=== PATIENT | male | born 1985 | race Caucasian/White ===

== ENCOUNTER 2023-10-19 14:36 | Emergency (ER) | payer OTHER, SELFPAY ==
--- NOTE | ~2023-10-19 | US_ITS ---
EXAMINATION: US VENOUS ULTRASOUND WITH DOPPLER LOWER EXTREMITY, RIGHT CLINICAL INFORMATION: Right lower extremity/knee swelling/pain COMPARISON: None available. TECHNIQUE: Ultrasound of the deep veins is performed from the hip to the calf with compression sonography and color and pulse Doppler assessment. Spectral analysis with color-flow imaging is performed. FINDINGS: There is normal venous compression and respiratory variation and augmented flow. The visualized common femoral vein, superficial femoral vein, profunda femoral vein, popliteal vein, and the mid calf posterior tibial and peroneal veins show no evidence of deep venous thrombosis. The contralateral common femoral vein demonstrates normal respiratory variation. US/US venous duplex LE RT IMPRESSION: No DVT demonstrated in the right lower extremity.
[2023-10-19 15:24] VITALS: BP 137/96; PULSE 72; RESP 18; TEMP 37; O2SAT 98; BMI 32.6
--- NOTE | 2023-10-19 15:26 | ED.LOWEXIN ---
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 R knee swelling anteriorly no other symptoms no rash was told he has bursitis but did not follow up with orthopedics did not use woo wrap now comes in with no change but questions complaint: other (knee swelling) Onset (ago): week(s) (1) Severity: mild Relieving factors: nothing Exacerbating factors: nothing Context: other (denies knowing) Associated symptoms: swelling Other symptoms: none Treatments prior to arrival: NSAIDS Related Data Allergies Allergy/AdvReac Type Severity Reaction Status Date / Time aspirin [ASPIRIN] Allergy Intermediate SWELLING Unverified 07/25/20 18:26 Penicillins [PENICILLINS] Allergy Intermediate SWELLING Unverified 07/25/20 18:26 Review of Systems Review of Systems: Constitutional : No Fever, No Chills Cardiovascular : No Chest Pain, No SOB Respiratory : No Cough, No Dyspnea Gastrointestinal : No Nausea, No Vomiting, No Diarrhea, No abdominal Pain Genitourinary : No Dysuria, No Hematuria Musculoskeletal : positive joint pain, No Myalgias, No Joint Swelling Skin : No Skin lacerations, No rash Neuro : No Weakness, No Numbness, No Loss of Consciousness, No Dizziness, No Headache Psych : No Anxiety/Panic, No Depression All other systems reviewed and are negative [facility] Past Medical History Attestation statement: The following information was validated with the patient. Source: old records reviewed Medical History No pertinent past medical history Social History Social History Advance Directives: No Advance Directives Information Provided: No Physical Exam Vital Signs: Vital Signs: Last Vital Signs Temp 97.9 F 10/19/23 20:12 Pulse 72 10/19/23 20:12 Resp 16 10/19/23 20:12 BP 132/88 10/19/23 20:12 Pulse Ox 96 10/19/23 20:12 O2 Del Method Room Air 10/19/23 20:12 BMI result Body Mass Index 32.6 Appearance: Alert. Oriented X3. No acute distress. Eyes: Pupils equal, round and reactive to light. ENT: Pharynx normal. Neck: Normal inspection. Neck supple. CVS: Normal heart rate and rhythm. Pulses normal. Respiratory: No respiratory distress. Abdomen: Soft and nontender. Skin: Skin warm and dry. Normal skin color. Extremities: No lower extremity edema. R knee soft boggy medium prepatallar bursitis no knee effusion Neuro: Oriented X 3. No motor deficit. No sensory deficit. Course Course Course Narrative: RME: 38yo M w/no sig PMHx c/oR knee pain and swelling x1 week. was seen at Dx w/Bursitis, had XRs however w/continued pain/swelling +R knee swelling/+1 pitting edema Venous duplex US ordered Full HPI, ROS and PE to be performed by primary ED provider. Medical Decision Making Medical Decision Making [facility] Narrative: 38 yo male healthy here with atraumatic prepatellar bursitis - no redness, warmth, fevers to suggest infection will place in woo wrap already has ortho follow up can take NSAIDs PRN Differential Diagnosis Differential Diagnoses: The differential diagnosis associated with the presentation includes bursitis Independent Interpretation I performed an independent interpretation of an: Ultrasound (normal ) Radiology Impression Discussion of test interpretation with radiology: I have reviewed the radiologist's reading. Discharge Plan Discharge Clinical Impression: Bursitis, prepatellar, right Patient Disposition: Home, Self-Care Instructions: Knee Bursitis (ED) Additional Instructions: wear woo wrap until you see orthopedics can take motrin. try not to kneel on the area. return for fevers, redness, or any other concerns Use Woo Wrap hasta que mery que el ortopedista puede vashti Motrin. Trate de no arrodillarse en el ?liane. Regrese si tiene fiebre, enrojecimiento o cualquier otra inquietud. Print Language: Vietnamese
[2023-10-19 20:12] VITALS: BP 132/88; PULSE 72; RESP 16; TEMP 36.6; O2SAT 96
== END 2023-10-19 20:41 | disposition home or self-care (01) ==
PROVIDERS: Emergency Provider Emergency Medicine
DX: M71.161 Other infective bursitis, right knee (principal); M25.461 Effusion, right knee; M25.462 Effusion, left knee; R60.0 Localized edema
CPT/HCPCS: 93971; 99282; 99284

== ENCOUNTER 2025-03-10 00:40 | Emergency (ER) | payer MEDICAID, SELFPAY ==
--- NOTE | 2025-03-10 | ECG_ITS ---
Test Reason : CP Blood Pressure : */* mmHG Vent. Rate : 75 BPM Atrial Rate : 75 BPM P-R Int : 138 ms QRS Dur : 100 ms QT Int : 374 ms P-R-T Axes : 38 18 9 degrees QTcB Int : 417 ms Normal sinus rhythm Incomplete right bundle branch block Nonspecific T wave abnormality Abnormal ECG When compared with ECG of 19-Nov-2018 22:08, Incomplete right bundle branch block is now Present Nonspecific T wave abnormality, worse in Inferior leads Referred By: Generic ED Physician Electronically Signed By: Edwardo Duran
--- NOTE | ~2025-03-10 | XR_ITS ---
CLINICAL HISTORY: cp 1 view chest x-ray Comparison: None Findings: No consolidation or effusion. Heart size is normal. No acute fracture. IMPRESSION: 1. No acute findings. This document has been electronically signed by: Ge Desir MD, PHD on 03/10/2025 01:28:31
[2025-03-10 00:45] VITALS: BP 121/67; PULSE 68; RESP 18; TEMP 36.4; O2SAT 98; BMI 27.4
[2025-03-10 00:57] LABS: MANUAL DIFF FLAG NO
[2025-03-10 00:59] LABS: Basophils Percent Auto 0.4 % (0-2); Eosinophils Absolute Auto 0.3 X10*3/uL (0.0-0.4); Eosinophils Percent Auto 3.4 % (0-4); Hematocrit 44.4 % (42.0-52.0); Hemoglobin 14.8 g/dl (14.0-18.0); Imm Gran Abs Auto 0.03 X10*3/uL (0.00-0.03); Imm Gran Pct Auto 0.3 % (0.0-0.4); Lymphocytes Absolute Auto 2.1 X10*3/uL (1.2-4.9); Lymphocytes Percent Auto 21.9 % (20-40); Mean Corpuscular HGB Conc 33.3 g/dl (31.0-36.0); Mean Corpuscular Hemoglobin 28.1 pg (27.0-33.0); Mean Corpuscular Volume 84.3 fL (80.0-98.0); Monocytes Percent Auto 9.9 % (2-11); Neutrophils Absolute Auto 6.2 x10*3/uL (2.0-8.3); Neutrophils Percent Auto 64.1 % (45-73); Platelet Count 270 X10*3/uL (160-400); Red Blood Count 5.27 X10*6/uL (4.60-5.80); Red Cell Distribution Width 14.2 % (11.0-16.0); White Blood Count 9.6 X10*3/uL (4.8-10.8)
[2025-03-10 01:11] LABS: Anion Gap 12 (12-20); Blood Urea Nitrogen 17 mg/dL (9-16); Calcium 9.3 mg/dL (8.4-10.2); Carbon Dioxide 27 mmol/L (22-29); Chloride 105 mmol/L (96-108); Creatinine Clr Calc Pharmacy 127.1; Estimated Glomerular Filt Rate > 60; Glucose Random 90 mg/dL (60-115); Potassium 3.6 mmol/L (3.3-5.1); Sodium 140 mmol/L (135-145)
[2025-03-10 01:19] LABS: Troponin-I High Sensitivity 3.7 ng/L (<3.5-35.0)
--- NOTE | 2025-03-10 01:30 | ED_ITS ---
HPI - Chest Pain General Chief Complaint: Chest Pain Stated Complaint: CP Time Seen by Provider: 03/10/25 01:29 Source: patient Mode of arrival: ambulatory Limitations: no limitations History of Present Illness ED Provider: HPI narrative: Patient with no known cardiac history does have history of anxiety and increased stress been having mid chest pain off and on for last 2 week with anxiety patient was seen at [facility] for same 2 weeks ago workup was negative patient has been homeless for last 2 days with increased stress today around noon time patient noticed mid chest pain similar to that was in the past with anxiety no chest pain at this time patient has been sleeping since he arrived cardiac enzymes negative, EKG with no acute ischemic changes Related Data Previous Rx's ?Medication ?Instructions ?Recorded lorazepam 1 mg tablet (Ativan) 1 mg PO BEDTIME PRN anxiety/sleep 03/10/25 #10 tabs Allergies Allergy/AdvReac Type Severity Reaction Status Date / Time aspirin [ASPIRIN] Allergy Intermediate SWELLING Verified 03/10/25 00:47 Penicillins [PENICILLINS] Allergy Intermediate SWELLING Verified 03/10/25 00:47 Review of Systems 2 Review of Systems: Yes all other systems are reviewed and are negative COUNTS INCLUDE 234 BEDS AT THE [facility] Past Medical History Medical History No pertinent past medical history Social History Social History Smoked in Last 30 Days: No Use of substances other than those prescribed or required for medical reasons: No Advance Directives: No Advance Directives Information Provided: Yes Do you have a plan to hurt others: No Plan Physical Exam 2 Vital Signs: Vital Signs: Last Vital Signs Temp 97.7 F 03/10/25 05:59 Pulse 80 03/10/25 05:59 Resp 18 03/10/25 05:59 BP 114/68 03/10/25 05:59 Pulse Ox 97 03/10/25 05:59 O2 Del Method Room Air 03/10/25 05:59 BMI result Body Mass Index 27.4 Appearance: Alert. Oriented X3. No acute distress. Eyes: PERRLA, No Nystagmus ENT: Pharynx normal. Oral Mucosa moist Neck: Normal inspection. Neck supple. CVS: Normal heart rate and rhythm. Pulses normal. Respiratory: No respiratory distress. Equal air entry bilateral, no wheezing/rales/rhonchi Abdomen: Soft and nontender. Bowel sounds are present, no mass palpable, no CVA tenderness Skin: Skin warm and dry. Normal skin color. Normal skin turgor. Extremities: No lower extremity edema. No calf tenderness Neuro: Oriented X 3. No motor deficit. No sensory deficit.No cerebellar signs , cranial nerves II-XII intact Medical Decision Making Medical Decision Making [facility] Narrative: Patient has atypical chest pain with increased anxiety thinks anxiety brings the chest pain patient has been homeless EKG without ischemic changes cardiac enzymes are negative patient advised to follow with PCP Differential Diagnosis Differential Diagnoses: The differential diagnosis associated with the presentation includes Anxiety/ACS/atypical chest pain Lab Data [facility] Lab Attestation statement: I reviewed the patient's lab results. 03/10/25 00:53 03/10/25 00:53 Labs: Lab Results 03/10/25 Range/Units 00:53 WBC 9.6 (4.8-10.8) X10*3/uL RBC 5.27 (4.60-5.80) X10*6/uL Hgb 14.8 (14.0-18.0) g/dl Hct 44.4 (42.0-52.0) % MCV 84.3 (80.0-98.0) fL MCH 28.1 (27.0-33.0) pg MCHC 33.3 (31.0-36.0) g/dl RDW 14.2 (11.0-16.0) % Plt Count 270 (160-400) X10*3/uL MPV 9.0 L (9.4-12.4) fL Immature Gran % (Auto) 0.3 (0.0-0.4) % Neut % (Auto) 64.1 (45-73) % Lymph % (Auto) 21.9 (20-40) % [place] % (Auto) 9.9 (2-11) % Eos % (Auto) 3.4 (0-4) % Baso % (Auto) 0.4 (0-2) % Lymph # (Auto) 2.1 (1.2-4.9) X10*3/uL [place] # (Auto) 1.0 (0.1-1.2) X10*3/uL Eos # (Auto) 0.3 (0.0-0.4) X10*3/uL Baso # (Auto) 0.0 (0.0-0.2) X10*3/uL Abs Immat Gran (auto) 0.03 (0.00-0.03) X10*3/uL Absolute Neuts (auto) 6.2 (2.0-8.3) x10*3/uL Absolute Nucleated RBC 0.000 (0.0-0.012) X10*3/uL Nucleated RBC % (auto) 0.0 (0.0-0.2) /100WBC Sodium 140 (135-145) mmol/L Potassium 3.6 (3.3-5.1) mmol/L Chloride 105 (96-108) mmol/L Carbon Dioxide 27 (22-29) mmol/L Anion Gap 12 (12-20) BUN 17 H (9-16) mg/dL Creatinine 0.77 (0.5-1.4) mg/dL Estim Creat Clear Calc 127.1 Estimated GFR > 60 Random Glucose 90 (60-115) mg/dL Calcium 9.3 (8.4-10.2) mg/dL Troponin I High Sens 3.7 (<3.5-35.0) ng/L Independent Interpretation I performed an independent interpretation of an: EKG and Plain X-Ray Interpretation: Normal sinus rhythm with heart rate 75 beats per minute normal interval incomplete right bundle-branch block no acute STT wave changes no acute ischemia Discharge Plan Discharge Clinical Impression: Atypical chest pain, Anxiety Patient Disposition: Home, Self-Care Instructions: Chest Pain (ED), Anxiety (ED) Additional Instructions: Your chest pain is likely from anxiety Take medication as prescribed for sleep and anxiety Follow with your PCP as needed Prescriptions: New lorazepam [Ativan] 1 mg tablet 1 mg PO BEDTIME MDD anxiety/sleep PRN (Reason: anxiety/sleep) Qty: 10 0RF Print Language: Lao
[2025-03-10 05:59] VITALS: BP 114/68; PULSE 80; RESP 18; TEMP 36.5; O2SAT 97
[2025-03-10 07:04] VITALS: BP 114/68; PULSE 80; RESP 18; TEMP 36.5; O2SAT 97
== END 2025-03-10 07:05 | disposition home or self-care (01) ==
PROVIDERS: Emergency Provider Internal Medicine
DX: R07.89 Other chest pain (principal); F41.9 Anxiety disorder, unspecified
CPT/HCPCS: 36415; 71045; 80048; 84484; 85025; 93005; 99284

== ENCOUNTER → 2025-03-10 00:42 | Outpatient (BNV) | payer SELFPAY | PROVIDERS: Emergency Provider Internal Medicine; Visit Provider Internal Medicine Cardiovascular Disease | DX: I45.10 Unspecified right bundle-branch block (principal) | CPT/HCPCS: 93010 ==

== ENCOUNTER → 2025-03-10 01:13 | Outpatient (BNV) | payer SELFPAY | PROVIDERS: Emergency Provider Internal Medicine; Visit Provider General Practice | DX: R07.9 Chest pain, unspecified (principal) | CPT/HCPCS: 71045 ==

== ENCOUNTER 2025-09-03 10:15 | Emergency (ER) | payer OTHER, SELFPAY ==
--- OUTSIDE RECORDS SUMMARY | 2025-06-08 09:30 | XMS_ITS ---
Author Organization [facility] Address [address] [place] [id number] Care Team Providers Care Senior Technical Writer Name Role Phone NO, PCP Primary Care Provider [phone] [facility], Nursing Unavailable [phone] REASON FOR VISIT Office: Intake Encounters Encounter Location Date Provider Diagnosis [address] [id number] 06/08/2025 Nursing [facility] Plan Of Treatment No Information Progress Notes * Dc SORIADOB: 1985 (40 yo M)Acc No.[id number]:06/08/2025 Progress Notes Patient: Suzan LEMON Dc ARREDONDO Provider: Corey GARCIA :1985 A ge:39 Y S ex:Male Date:06/08/2025 Address:[address] [place], [place] [id number] Pcp:PCP NO Subjective: * Chief Complaints: * 1 . Office: Intake. * Medical History: Objective: * Vitals: Assessment: Plan: * Treatment: * Images: Billing Information: * Visit Code: * Procedure Codes: * Electronic signature of Susana carreon [facility] on 09/03/2025 at 01:08 PM EDT Sign off status: Pending * Provider: Corey britton [facility] Date: 0 06/08/2025 Generated for Taylor cantrell/Wale/Doni on: 1 01:08 PM EDT
--- NOTE | ~2025-09-03 | XR_ITS ---
EXAMINATION: XR CHEST CLINICAL INFORMATION: chest pain, cough COMPARISON: X-ray 03/10/2025 TECHNIQUE: 2 views of the chest were obtained. FINDINGS: Heart size normal. Right basilar streaky/hazy opacities. Low lung volumes. No effusion. No pneumothorax. No acute osseous findings. XR/XR chest 2V IMPRESSION: Right basilar atelectasis/infiltrate. Electronically signed by: Александр Wilson MD 09/03/2025 12:09 PM EDT
--- NOTE | 2025-09-03 10:16 | ECG_ITS ---
Test Reason : cp Blood Pressure : */* mmHG Vent. Rate : 82 BPM Atrial Rate : 82 BPM P-R Int : 138 ms QRS Dur : 90 ms QT Int : 370 ms P-R-T Axes : 35 -12 8 degrees QTcB Int : 432 ms Sinus rhythm with Premature atrial complexes Nonspecific T wave abnormality Abnormal ECG When compared with ECG of 10-Mar-2025 00:42, Premature atrial complexes are now Present Referred By: Generic ED Physician Electronically Signed By: AKTHERINE RAMIRES
[2025-09-03 10:25] VITALS: BP 140/90; PULSE 84; RESP 16; TEMP 36.8; O2SAT 98; BMI 36.3
[2025-09-03 11:47] LABS: MANUAL DIFF FLAG NO
[2025-09-03 11:50] LABS: Hematocrit 50.1 % (42.0-52.0); Hemoglobin 16.1 g/dl (14.0-18.0); Imm Gran Abs Auto 0.03 X10*3/uL (0.00-0.03); Imm Gran Pct Auto 0.4 % (0.0-0.4); Lymphocytes Absolute Auto 1.9 X10*3/uL (1.2-4.9); Mean Corpuscular HGB Conc 32.1 g/dl (31.0-36.0); Mean Corpuscular Hemoglobin 27.6 pg (27.0-33.0); Mean Corpuscular Volume 85.9 fL (80.0-98.0); NRBC Abs Auto 0.000 X10*3/uL (0.0-0.012); NRBC Pct Auto 0.0 /100WBC (0.0-0.2); Platelet Count 284 X10*3/uL (160-400); Red Blood Count 5.83 X10*6/uL (4.60-5.80); White Blood Count 7.5 X10*3/uL (4.8-10.8)
[2025-09-03 12:00] VITALS: BP 143/82; PULSE 78; RESP 16; O2SAT 99
[2025-09-03 12:04] LABS: Alanine Aminotransferase 23 U/L (0-40); Albumin Level 3.9 g/dL (3.5-5.0); Alkaline Phosphatase 60 U/L (39-117); Anion Gap 10 (12-20); Aspartate Amino Transferase 13 U/L (5-37); Blood Urea Nitrogen 13 mg/dL (9-16); COVID-19 Test Negative (Negative); Calcium 8.5 mg/dL (8.4-10.2); Carbon Dioxide 24 mmol/L (22-29); Chloride 109 mmol/L (96-108); Creatinine Clr Calc Pharmacy 173.5; Estimated Glomerular Filt Rate > 60; IDNOW Serial# 58CA691E; Magnesium 2.2 mg/dL (1.6-2.6); Potassium 4.1 mmol/L (3.3-5.1); Sodium 139 mmol/L (135-145); Total Protein 6.8 g/dL (6.5-8.0)
[2025-09-03 12:06] LABS: IDNOW Serial# 55D5AD1C; Influenza B2 Negative (Negative)
--- NOTE | 2025-09-03 12:07 | ED.CHESTPAIN ---
HPI - Chest Pain General Chief Complaint: Chest Pain Stated Complaint: CP Time Seen by Provider: 09/03/25 10:34 Source: patient, family ( at bedside corroborating history), RN notes reviewed and old records reviewed Mode of arrival: ambulatory Limitations: no limitations History of Present Illness ED Provider: ZOHAIB Lechuga HPI narrative: 40-year-old Croatian-speaking male accompanied by who is acting as his associate [employer], with medical history of anxiety presents to the ED due to 2 days of left-sided chest pain. Patient states he woke up 2 days ago with left-sided chest pain that radiated to the back however pain subsided as the day went on. Patient states he woke up this morning and noticed the same L sided chest pain that radiated to the back with an episode of dizziness that lasted approximately 10 minutes. Patient characterizes the pain as sharp and stabbing that is worse on deep inspiration and coughing. Patient states the chest pain has improved and is no longer radiating to the back, but is still experiencing a stabbing sensation over the L chest on deep inspiration and coughing. Patient states he has had a cough for the past month, and recently came back from [place] 1 month ago. Denies fevers, chills, nausea, vomiting, abd pain, black/tarry stools, urinary symptoms. Related Data Previous Rx's ?Medication ?Instructions ?Recorded lorazepam 1 mg tablet (Ativan) 1 mg PO BEDTIME PRN anxiety/sleep 03/10/25 #10 tabs doxycycline hyclate 100 mg capsule 100 mg PO BID 5 days #10 caps 09/03/25 Allergies Allergy/AdvReac Type Severity Reaction Status Date / Time aspirin (ASPIRIN) Allergy Intermediate SWELLING Verified 09/03/25 10:27 Penicillins (PENICILLINS) Allergy Intermediate SWELLING Verified 09/03/25 10:27 Review of Systems Review of Systems: CONST: Negative for fever, body aches and chills. HENT: Negative for neck pain/stiffness, headache, congestion, sore throat, swelling. EYES: Negative for discharge/pain or vision changes. RESP: Negative for cough/hemoptysis and shortness of breath. CV: Negative, difficulty breathing, palpitations. POS L sided sharp stabbing intermittent pain worse with deep inspiration and cough ABD: Negative pain, nausea, vomiting. : Negative increase frequency, dysuria, blood in urine or stool. MUSC: Negative for muscle aches, edema. SKIN: Negative rash, lesions/sores. NEURO: Negative headache, dizziness, weakness. Yes all other systems are reviewed and are negative [facility] Past Medical History Attestation statement: The following information was validated with the patient. Source: old records reviewed, obtained from family ( at bedside corroborating history) and nursing notes reviewed Medical History No pertinent past medical history Social History Social History Advance Directives: No Advance Directives Information Provided: Yes Physical Exam Vital Signs: Vital Signs: Last Vital Signs Temp 98.2 F 09/03/25 10: Pulse 78 09/03/25 12:00 Resp 16 09/03/25 12:00 BP 143/82 H 09/03/25 12:00 Pulse Ox 99 09/03/25 12:00 O2 Del Method Room Air 09/03/25 12:00 BMI result Body Mass Index 36.3 GENERAL APPEARANCE: ?AxOx4, generally well-appearing, no acute distress. HEENT: ?NC, AT. MMM. EOMI, clear conjunctiva, oropharynx clear. NECK: ?Supple without lymphadenopathy.? No stiffness or restricted ROM. HEART:? Normal rate and regular rhythm, normal S1/S2, no m/r/g LUNGS:? CTAB, moving air well. No crackles or wheezes are heard. ABDOMEN: ?Soft, nontender, nondistended BACK: No CVAT, no obvious deformity. EXTREMITIES: ?Without cyanosis, clubbing or edema. NEUROLOGICAL: ?Grossly nonfocal. Alert and oriented, moving all 4 extremities. Observed to ambulate with normal gait. Skin: ?Warm and dry without any rash. Medical Decision Making Medical Decision Making [facility] Narrative: 40-year-old Croatian-speaking male accompanied by who is acting as his associate [employer], with medical history of anxiety presents to the ED due to 2 days of left-sided chest pain radiating to the back, that is sharp in quality and is worse with deep inspiration and when coughing. Pain is intermittent and associated with 10 minute episode of dizziness. Patient states the chest pain has improved and is no longer radiating to the back, but is still experiencing a stabbing sensation over the L chest on deep inspiration and coughing. Patient states he has had a cough for the past month, and recently came back from [place] 1 month ago. VS on initial observation-BP 140/90, pulse rate of 84, respiratory rate of 16, afebrile with oral temp of 98.2?, O2 saturation 98% on room air on physical exam patient is nontoxic appearing, in no acute distress, is resting comfortably on the hospital stretcher, lungs clear to auscultation bilaterally, cardiac exam reveals a normal rate and rhythm without murmurs/rubs/gallops, abdomen is soft, nondistended, nontender, ext remedies are well-perfused, without edema of the lower extremities. EKG reveals sinus rhythm with premature atrial complexes, with nonspecific T-wave abnormality, no ST-elevation/depression, lengthened QT, troponins x2 undetectable at <2.7 Labs without leukocytosis/leukopenia, no evidence of anemia, H&H stable, no electrolyte abnormalities, D-Dimer negative at <150 CXR with R basilar atelectasis/infiltrates. Patient with an intermittent sharp stabbing pleuritic L sided chest pain. Patient has history of smoking but quit approximately 20 years ago, no drug use, drinks socially. Chest pain has subsided at this time. Labs unremarkable. EKG with sinus rhythm and premature atrial complexes, no ST-elevation/depression, troponins x2 undetectable at <2.7. CXR with R sided infiltrate, patient with a dry persistent cough for 1 month. At this time, I believe pleuritic chest pain is most likely due to pneumonia. Patient without comorbidities, no recent abx therapy, CURB65 negative, no indication for hospitalization. Patient will be discharged with 5 day course of amoxicillin for coverage. Patient does not have a PCP as he was just recently established with healthcare. I will provide referrals for family medicine. I counseled patient on strict return precautions. Patient feels well enough to go home for self care. Patient and his are in agreement with the plan. Differential Diagnosis Differential Diagnoses: The differential diagnosis associated with the presentation includes ACS Dysrhythmia Bronchitis Pneumonia COVID Influenza Admission/Observation Consideration of admission/observation: Escalation of care including admission/observation considered Lab Data MDM Lab Attestation statement: I reviewed the patient's lab results. 09/03/25 11:41 09/03/25 11:41 Labs: Lab Results 09/03/25 09/03/25 Range/Units 11:41 12:59 WBC 7.5 (4.8-10.8) X10*3/uL RBC 5.83 H (4.60-5.80) X10*6/uL Hgb 16.1 (14.0-18.0) g/dl Hct 50.1 (42.0-52.0) % MCV 85.9 (80.0-98.0) fL MCH 27.6 (27.0-33.0) pg MCHC 32.1 (31.0-36.0) g/dl RDW 13.7 (11.0-16.0) % Plt Count 284 (160-400) X10*3/uL MPV 9.5 (9.4-12.4) fL Immature Gran % (Auto) 0.4 (0.0-0.4) % Neut % (Auto) 60.5 (45-73) % Lymph % (Auto) 25.1 (20-40) % [place] % (Auto) 8.3 (2-11) % Eos % (Auto) 5.0 H (0-4) % Baso % (Auto) 0.7 (0-2) % Lymph # (Auto) 1.9 (1.2-4.9) X10*3/uL [place] # (Auto) 0.6 (0.1-1.2) X10*3/uL Eos # (Auto) 0.4 (0.0-0.4) X10*3/uL Baso # (Auto) 0.1 (0.0-0.2) X10*3/uL Abs Immat Gran (auto) 0.03 (0.00-0.03) X10*3/uL Absolute Neuts (auto) 4.5 (2.0-8.3) x10*3/uL Absolute Nucleated RBC 0.000 (0.0-0.012) X10*3/uL Nucleated RBC % (auto) 0.0 (0.0-0.2) /100WBC D-Dimer High Sensitivty < 150 NG/ML Sodium 139 (135-145) mmol/L Potassium 4.1 (3.3-5.1) mmol/L Chloride 109 H (96-108) mmol/L Carbon Dioxide 24 (22-29) mmol/L Anion Gap 10 L (12-20) BUN 13 (9-16) mg/dL Creatinine 0.66 (0.5-1.4) mg/dL Estim Creat Clear Calc 173.5 Estimated GFR > 60 Random Glucose 120 H (60-115) mg/dL Calcium 8.5 D (8.4-10.2) mg/dL Magnesium 2.2 (1.6-2.6) mg/dL Total Bilirubin 0.2 (0.0-1.0) mg/dL AST 13 (5-37) U/L ALT 23 (0-40) U/L Alkaline Phosphatase 60 (39-117) U/L Troponin I High Sens < 2.7 < 2.7 (<3.5-35.0) ng/L Total Protein 6.8 (6.5-8.0) g/dL Albumin 3.9 (3.5-5.0) g/dL COVID-19 (ARUN) Negative (Negative) COVID-19 Clin Com See Note Influenza Type A (MARCO ANTONIO) Negative (Negative) Influenza Type B (MARCO ANTONIO) Negative (Negative) Influenza A & B Note See Note Independent Interpretation I performed an independent interpretation of an: EKG and Plain X-Ray Interpretation: I personally interpreted the EKG which reveals sinus rhythm with PACs, nonspecific T-wave abnormality, no ST-elevation/depression, lengthened QT Vent. Rate : 82 BPM Atrial Rate : 82 BPM P-R Int : 138 ms QRS Dur : 90 ms QT Int : 370 ms P-R-T Axes : 35 -12 8 degrees QTcB Int : 432 ms Sinus rhythm with Premature atrial complexes Nonspecific T wave abnormality Abnormal ECG When compared with ECG of 10-Mar-2025 00:42, Premature atrial complexes are now Present I personally interpreted the CXR which reveals right-sided atelectasis/infiltrates, no cardiomegaly, pneumothorax, pleural effusions, I agree with the radiologist's interpretation Radiology Impression Discussion of test interpretation with radiology: I have reviewed the radiologist's reading. Radiologist Impression: CXR FINDINGS: Heart size normal. Right basilar streaky/hazy opacities. Low lung volumes. No effusion. No pneumothorax. No acute osseous findings. XR/XR chest 2V IMPRESSION: Right basilar atelectasis/infiltrate. Electronically signed by: Александр Wilson MD 09/03/2025 12:09 PM EDT RP Dictated By: Александр Wilson MD Signed By: <Electronically signed by Александр Wilson MD in OV> 09/03/25 1209 Independent Historian Clinical information obtained from an independent historian. History obtained from or confirmed by: Spouse ( at bedside corroborating history) External Record Review External record reviewed: Inpatient record, Office record and Outpatient record Chronic Conditions Patient?s care impacted by: Other (Anxiety) Discharge Plan Discharge Clinical Impression: Pneumonia Patient Disposition: Home, Self-Care Instructions: Community Acquired Pneumonia (DC) Additional Instructions: You were evaluated in the ED due to chest pain. Your lab work was normal today. Your EKG revealed premature atrial contractions however this is nonemergent finding, your troponins which is a protein that the heart gives off when under stress or damage were both undetectable. Your chest x-ray shows infiltrations, consistent with pneumonia. I believe this is what has been causing your chest pain over the last 2 days. I have provided referrals to primary care, please call their office as they will not call you. You are being discharged with a 5 day course of doxycycline that you will take 2 times daily to treat for pneumonia. Additionally, you can take 500 mg of Tylenol, and 400 mg of ibuprofen every 6 hours to manage pain, fevers and discomfort. Please return to the emergency department if you experience worsening chest pain, difficulty breathing, fevers over 100.4? that are not treated by Tylenol/ibuprofen, confusion, or any new/worsening/concerning symptoms. Prescriptions: New doxycycline hyclate 100 mg capsule 100 mg PO BID 5 Days Qty: 10 0RF No Action lorazepam [Ativan] 1 mg tablet 1 mg PO BEDTIME MDD anxiety/sleep PRN (Reason: anxiety/sleep) Qty: 10 0RF Print Language: Croatian
[2025-09-03 12:13] LABS: Troponin-I High Sensitivity < 2.7 ng/L (<3.5-35.0)
[2025-09-03 12:29] LABS: D Dimer High Sensitivity < 150 NG/ML
--- OUTSIDE RECORDS SUMMARY | 2025-09-03 13:09 | XMS_ITS | Patient Health Record ---
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, Nursing Unavailable [phone] [facility], CH[facility] Unavailable [phone] Reason For Referral No Information Encounters Encounter Location Date Provider Diagnosis [address] [id number] 04/18/[address] [address] 04/20/2025 [facility] Plan Of Treatment No Information Insurance Providers Payer Name Payer Address Payer Phone Subscriber Number Group Number Insured Name Patient Relationship to Insured Coverage Start Date Coverage End Date [place] Medicaid C3 [address] [place], [place] [id number] Dc Bautista Self - patient is the insured
--- OUTSIDE RECORDS SUMMARY | 2025-09-03 13:09 | XMS_ITS | Clinical Summary ---
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 Do not crush, chew, or split. 30 tablet 07/11/2025 Active ibuprofen 600 MG tablet Take 1 tablet (600 mg) by mouth 3 times daily. 15 tablet 07/11/2025 Active Active Problems Problem Noted Date Diagnosed Date Tooth impaction 07/11/2025 Severe dental caries 07/11/2025 Pain, dental 07/11/2025 Encounters Date Type Department Care Team Description 07/11/2025 11:30 AM EDT Office Visit [facility] [address] [place] [address] Rayray Quezada DDS Tooth impaction (Primary Dx); Severe dental caries; Pain, dental from Last 3 Months Social History Tobacco Use Types Packs/Day Years Used Date Smoking Tobacco: Never Passive Smoke Exposure: Never Smokeless Tobacco: Never Tobacco Cessation:Counseling Given: No Alcohol Use Standard Drinks/Week Comments Never 0 (1 standard drink = 0.6 oz pur e alcohol) Sex and Gender Information Value Date Recorded Sex Assigned at Male 07/11/2025 9:08 AM EDT Legal Sex Male 8:58 AM EDT Gender Identity Male 07/11/2025 9:08 AM EDT Sexual Orientation Straight 07/11/2025 9: 08 AM EDT Plan of Treatment Health Maintenance Due Date Last Done Comments Dental Oral Exam 1986 Dental Prophylaxis 1986 Dental X-Ray: Bitewings 1986 Depression Screening 1986 HIV Screening 1986 Lipid Panel 1986 SDOH Screening 1986 Disability Screening 1986 Alcohol/Substance Use Screening 1998 Family Planning (PISQ) 2001 HPV Vaccines (1 - Male 3-dos e series) 2001 Hepatitis C Screening 2004 DTaP/Tdap/Td Vaccines (1 - Tdap) 2005 Hepatitis B Vaccines (1 of 3 - 19+ 3-dose series) 2005 COVID-19 Vaccine (1 - 2023-2 5 season) 2025 Influenza Vaccine (#1) 2025 Tobacco Screening 07/11/2026 07/11/2025 Dental X-Ray: Full Mouth 07/12/2028 07/11/2025 Zoster Vaccines (1 of 2) 2036 RSV Patients and Pa tients Aged 60 years or older (1 - 1-dose 75+ series) 2061 HIB Vaccines Aged Out No longer eligi ble based on patient's age to complete this topic Hepatitis A Vaccines Aged Out No long er eligible based on patient's age to complete this topic IPV Vaccines Aged Out No longer eligi ble based on patient's age to complete this topic Meningococcal B Vaccine Aged Out No l onger eligible based on patient's age to complete this topic Meningococcal Vaccine Aged Out No delmy elise eligible based on patient's age to complete this topic Pneumococcal Vaccine: Pediat rics (0 to 5 Years) and At-Risk Patients (6 to 49) Years Aged Out No longer eligi ble based on patient's age to complete this topic RSV under 20 months Aged Out No longe r eligible based on patient's age to complete this topic Rotavirus Vaccines Aged Out No longer eligible based on patient's age to complete this topic Procedures Procedure Name Priority Date/Time Associated Diagnosis Comments CASE PRESENTATION, DETAILED AND EXTENSIVE TREATMENT PLANNING Routine 07/11/2025 11:30 AM EDT PANORAMIC RADIOGRAPHIC IMAGE Routine 07/11/2025 11:30 AM EDT LIMITED ORAL EVALUATION - PROBLEM FOCUSED Routine 07/11/2025 11:30 AM EDT from Last 3 Months Insurance [facility] [employer] ST[place] AD[place]
[2025-09-03 13:26] LABS: Troponin-I High Sensitivity < 2.7 ng/L (<3.5-35.0)
[2025-09-03 14:17] VITALS: BP 143/82; PULSE 78; RESP 16; TEMP 37.1; O2SAT 99
== END 2025-09-03 14:36 | disposition home or self-care (01) ==
PROVIDERS: Emergency Provider Emergency Medicine
DX: J18.9 Pneumonia, unspecified organism (principal); R07.9 Chest pain, unspecified; Z03.818 Encounter for observation for suspected exposure to other biological agents ruled out; I49.1 Atrial premature depolarization; R94.31 Abnormal electrocardiogram [ECG] [EKG]
CPT/HCPCS: 36415; 71046; 80053; 83735; 84484; 85025; 85379; 87502; 87635; 93005; 99284

== ENCOUNTER → 2025-09-03 10:16 | Outpatient (BNV) | payer OTHER, SELFPAY | PROVIDERS: Emergency Provider Emergency Medicine; Visit Provider Internal Medicine | DX: I49.1 Atrial premature depolarization (principal) | CPT/HCPCS: 93010 ==